=== PATIENT | female | born 1965 | race Caucasian/White ===

== ENCOUNTER 2016-12-19 09:16 | Emergency (ER) | payer OTHER ==
[~2016-12-19] VITALS: Ht 170.2 cm; Wt 68.5 kg
[~2016-12-19 09:16] MED LIST: HYDROCODONE; IMIT50 PO; KLONOPIN; LORA-250 PO; SERT100T PO; TRAZ-132 PO
[2016-12-19] MEDS ORDERED: QUET150T PO (09:28)
[2016-12-19] MEDS ORDERED: METHADONE (09:34)
[2016-12-19] MEDS ORDERED: IBUPROFEN 600MG TABLET PO ONE (11:45)
[2016-12-19] MEDS ORDERED: BACITRACIN ZINC OINT UDPKT TOP ONE (11:45)
[2016-12-19] MEDS ORDERED: LIDOCAINE HCL 1% 20ML VIAL (Pyxis) INJ MC ONE ×2 (11:45→15:30)
[2016-12-19] MEDS ORDERED: TETANUS, DIPHTHERIA, PERTUSSIS VAC/PF 0.5ML (>7YR OLD) IM ONE (11:45)
[2016-12-19] MEDS ORDERED: KETOROLAC 30MG/ML VIAL IM ONE (14:00)
[2016-12-19] MEDS ORDERED: CEFTRIAXONE SODIUM 1 G/VIAL IM ONE (15:30)
[2016-12-19 15:37] VITALS: BP 102/65
== END 2016-12-19 16:44 | disposition home or self-care (01) ==
LOC: ER 09:48
DX: M79.621 Pain in right upper arm (principal); Z23 Encounter for immunization; L73.2 Hidradenitis suppurativa; F17.211 Nicotine dependence, cigarettes, in remission; Z86.59 Personal history of other mental and behavioral disorders
CPT/HCPCS: 10060; 81025; 90471; 90715; 96372; 99284; J0696; J1885; J3490; Z7610

== ENCOUNTER 2016-12-21 15:05 | Emergency (ER) | payer OTHER ==
[~2016-12-21 15:05] MED LIST changes: -HYDROCODONE; -IMIT50 PO; -LORA-250 PO; +METHADONE; +QUET150T PO; -SERT100T PO
== END 2016-12-21 17:48 | disposition left against medical advice (07) ==
LOC: ER 17:37
DX: Z48.00 Encounter for change or removal of nonsurgical wound dressing (principal); Z53.21 Procedure and treatment not carried out due to patient leaving prior to being seen by health care provider

== ENCOUNTER 2016-12-22 09:48 | Emergency (ER) | payer OTHER ==
[~2016-12-22] VITALS: Ht 160 cm; Wt 65.0 kg
[~2016-12-22 09:48] MED LIST changes: +HYDROCODONE; +IMIT50 PO; +LORA-250 PO; +SERT100T PO
[2016-12-22 10:33] VITALS: BP 100/68
== END 2016-12-22 11:01 | disposition home or self-care (01) ==
LOC: ER 09:49
DX: L02.411 Cutaneous abscess of right axilla (principal); F32.9 Major depressive disorder, single episode, unspecified; F17.200 Nicotine dependence, unspecified, uncomplicated
CPT/HCPCS: 99283

== ENCOUNTER 2018-06-08 20:45 | Emergency (ER) | payer OTHER ==
[~2018-06-08] VITALS: Ht 167.6 cm; Wt 69.0 kg
[~2018-06-08 20:45] MED LIST changes: -HYDROCODONE; -IMIT50 PO; -LORA-250 PO; -SERT100T PO; -TRAZ-132 PO; +TRAZ-213 PO
[2018-06-09] MEDS ORDERED: HYDROCODONE/ACETAMINOPHEN 5/325MG TABLET PO ONE (00:15)
[2018-06-09 00:54] VITALS: BP 132/71
== END 2018-06-09 00:56 | disposition home or self-care (01) ==
LOC: ER 23:29
DX: G89.29 Other chronic pain (principal); M54.9 Dorsalgia, unspecified; F11.10 Opioid abuse, uncomplicated; Z79.899 Other long term (current) drug therapy
CPT/HCPCS: 99283

== ENCOUNTER 2019-05-03 12:31 | Emergency (ER) | payer MEDICARE, OTHER ==
[~2019-05-03] VITALS: Ht 170.2 cm; Wt 60.0 kg
[~2019-05-03 12:31] MED LIST changes: -QUET150T PO; +QUET150T2 PO
[2019-05-03] MEDS ORDERED: IBUPROFEN 400MG TABLET PO ONE (14:45)
[2019-05-03 14:50] VITALS: BP 130/80
== END 2019-05-03 14:50 | disposition home or self-care (01) ==
LOC: ER 12:31
DX: R25.2 Cramp and spasm (principal); F17.200 Nicotine dependence, unspecified, uncomplicated; F19.10 Other psychoactive substance abuse, uncomplicated
CPT/HCPCS: 93971; 99284

== ENCOUNTER 2019-06-13 13:20 | Emergency (ER) | payer MEDICARE ==
[~2019-06-13] VITALS: Ht 167.6 cm; Wt 62.0 kg
[2019-06-13 15:34] VITALS: BP 119/78
== END 2019-06-13 17:15 | disposition left against medical advice (07) ==
LOC: ER 13:20
DX: Z53.21 Procedure and treatment not carried out due to patient leaving prior to being seen by health care provider (principal)